=== PATIENT | female | born 1985 | race African-American/Black ===

== ENCOUNTER 2017-01-27 20:54 | Outpatient (CLI) | payer OTHER | END 2017-01-27 23:25 | disposition home or self-care (01) | DX: O47.1 False labor at or after 37 completed weeks of gestation (principal); Z3A.39 39 weeks gestation of pregnancy ==

== ENCOUNTER 2017-01-28 16:59 | Inpatient (IN) | payer OTHER ==
[2017-01-28] MEDS ORDERED: SODIUM CHLORIDE FLUSH 0.9% 10 ML SYRINGE IVP PRN ×2 (18:05→18:15)
[2017-01-28] MEDS ORDERED: PENICILLIN G POTASSIUM 5,000,000 UNIT in SODIUM CHLORIDE 0.9% MINIBAG 100 ML IV SCH ×2 (18:45→20:00)
[2017-01-28] MEDS ORDERED: LACTATED RINGERS 1,000 ML IV SCH (19:00)
[2017-01-28] MEDS: LACTATED RINGERS 1,000 ML IV SCH (20:50)
[2017-01-28] MEDS ORDERED: SODIUM CHLORIDE FLUSH 0.9% 10 ML SYRINGE IVP SCH ×2 (22:00)
[2017-01-29] MEDS: PENICILLIN G POTASSIUM 2,500,000 UNIT in SODIUM CHLORIDE 0.9% 100ML 100 ML IV SCH ×4 (00:02→13:54)
[2017-01-29] MEDS ORDERED: OXYTOCIN/LACTATED RINGERS 250 ML IV SCH (02:00)
[2017-01-29] MEDS ORDERED: fent/BUPIV 2 MCG/0.125% 250 ML EP PRN (02:51)
[2017-01-29] MEDS: LACTATED RINGERS 1,000 ML IV SCH ×2 (03:18→07:30)
[2017-01-29] MEDS ORDERED: LIDOCAINE 1% 50 ML MDV ONE (08:35)
[2017-01-29] MEDS ORDERED: MINERAL OIL LIGHT 10 ML MC ONE (09:08)
[2017-01-29] MEDS ORDERED: HYDROCORTISONE/PRAMOXINE 10 GM PR PRN (11:21)
[2017-01-29] MEDS ORDERED: OXYTOCIN/LACTATED RINGERS 250 ML IV ONE (11:21)
[2017-01-29] MEDS ORDERED: WITCH HAZEL/GLYCERIN 1 EACH MED..PAD TOP PRN (11:21)
[2017-01-29] MEDS ORDERED: LACTATED RINGERS 1,000 ML IV SCH (12:00)
[2017-01-29] MEDS: HYDROcod/ACETAM 5/325 MG TABLET PO PRN (12:50)
[2017-01-29] MEDS: IBUPROFEN 600 MG TABLET PO SCH ×3 (12:50→23:51)
[2017-01-29] MEDS: valACYclovir 500 MG TABLET PO SCH (16:47)
[2017-01-29] MEDS: PRENATAL VITAMIN TABLET PO SCH (16:52)
[2017-01-30] MEDS: IBUPROFEN 600 MG TABLET PO SCH ×3 (06:00→19:58)
[2017-01-30] MEDS: PRENATAL VITAMIN TABLET PO SCH (09:26)
[2017-01-30] MEDS: HYDROcod/ACETAM 5/325 MG TABLET PO PRN ×2 (09:26→13:37)
[2017-01-30] MEDS: valACYclovir 500 MG TABLET PO SCH (09:26)
[2017-01-31] MEDS: IBUPROFEN 600 MG TABLET PO SCH ×2 (01:59→10:38)
[2017-01-31] MEDS: valACYclovir 500 MG TABLET PO SCH (10:37)
[2017-01-31] MEDS: PRENATAL VITAMIN TABLET PO SCH (10:38)
== END 2017-01-31 10:44 | disposition home or self-care (01) | DRG 774 ==
PROC: 0KQM0ZZ Repair Perineum Muscle, Open Approach (ICD-10-PCS; principal; 2017-01-29)
PROC: 10D07Z6 Extraction of Products of Conception, Vacuum, Via Natural or Artificial Opening (ICD-10-PCS; principal; 2017-01-29)
DX: O99.824 Streptococcus B carrier state complicating childbirth (principal); O98.52 Other viral diseases complicating childbirth; B00.9 Herpesviral infection, unspecified; O77.0 Labor and delivery complicated by meconium in amniotic fluid; O76 Abnormality in fetal heart rate and rhythm complicating labor and delivery; O75.81 Maternal exhaustion complicating labor and delivery; O70.1 Second degree perineal laceration during delivery; O64.0XX0 Obstructed labor due to incomplete rotation of fetal head, not applicable or unspecified; O69.2XX0 Labor and delivery complicated by other cord entanglement, with compression, not applicable or unspecified; O43.893 Other placental disorders, third trimester; Z3A.40 40 weeks gestation of pregnancy; Z37.0 Single live birth; Z79.899 Other long term (current) drug therapy

== ENCOUNTER 2017-03-03 00:31 | Outpatient (CLI) | payer OTHER | END 2017-03-03 00:32 | disposition EMS.NT | LOC: EMS 00:31 | PROVIDERS: ATTEND Surgery | DX: R07.9 Chest pain, unspecified (principal); R06.02 Shortness of breath ==

== ENCOUNTER 2017-03-03 01:24 | Emergency (ER) | payer OTHER ==
--- NOTE | 2017-03-03 02:28 | XRAY Preliminary Report ---
Exam: XR Chest 1 View IMPRESSION: Normal single view chest. [facility] SITE ID: [id number]
--- NOTE | 2017-03-03 02:31 | XRAY Report ---
EXAM: CHEST RADIOGRAPHY EXAM DATE: 03/03/2017 02:09 AM. CLINICAL HISTORY: Chest pain, sob. COMPARISON: None. TECHNIQUE: 1 view. FINDINGS: Lungs/Pleura: No focal opacities evident. No pleural effusion. No pneumothorax. Mediastinum: Within exam limitations, cardiomediastinal contour is normal. Other: None. IMPRESSION: Normal single view chest. [facility] Referring Provider Line: [phone] SITE ID: [id number]
--- NOTE | 2017-03-03 03:38 | ED Physician Documentation ---
PD HPI CHEST PAIN - Stated complaint Stated Complaint: SOA/CP - Chief complaint Chief Complaint: Resp - History obtained from History obtained from: Patient, Family - History of Present Illness Timing - onset: Today Timing - onset during: Rest Timing - details: Abrupt onset, Now resolved Quality: Pressure Location: Left chest, Right chest Worsened by: No: Exertion, Inspiration, Palpation, Position Associated symptoms: Shortness of air. No: Diaphoresis, Nausea, Vomiting, Feeling faint / dizzy, General Weakness Similar symptoms before: Has not had sx before Recently seen: Not recently seen - Additional information Additional information: Patient is a 31 year old female presenting to the emergency department for chest pressure. patient states that she was pumping breast milk this evening when she developed chest pressure. Patient states that she has never had these symptoms in the past. patient denies any exertional component but does state that she had a cousin that had heart problems at 30 y/o Review of Systems Constitutional: denies: Fever, Chills Eyes: denies: Loss of vision, Photophobia Ears: denies: Ear pain Nose: denies: Rhinorrhea / runny nose, Congestion Throat: denies: Sore throat Cardiac: reports: Chest pain / pressure. denies: Palpitations, Pedal edema, Calf pain Respiratory: reports: Dyspnea. denies: Cough, Wheezing GI: denies: Abdominal Pain, Nausea, Vomiting : denies: Dysuria, Frequency, Hesitancy Skin: denies: Rash, Lesions Musculoskeletal: denies: Neck pain, Back pain, Extremity pain Neurologic: denies: Syncope, Confused, Altered mental status Psychiatric: denies: Depressed, Anxiety Immunocompromised: denies: Immunocompromised PD PAST MEDICAL HISTORY - Past Medical History Past Medical History: No Respiratory: None Endocrine/Autoimmune: None - Past Surgical History Past Surgical History: Yes - Present Medications Home Medications: Ambulatory Orders Medication Instructions Recorded Confirmed Estradiol [Estrace] 2 mg PO TID 05/29/16 05/29/16 Pnv95/Ferrous Fumarate/FA 1 tab PO DAILY 05/29/16 05/29/16 [ Tablet] Progesterone,Micronized 1 unit .ROUTE TID 05/29/16 05/29/16 [Endometrin] - Allergies Allergies/Adverse Reactions: Allergies Allergy/AdvReac Type Severity Reaction Status Date / Time No Known Drug Allergies Allergy Verified 05/29/16 16:00 - Social History Does the pt smoke?: No Smoking Status: Never smoker Does the pt drink ETOH?: No Does the pt have substance abuse?: No - Immunizations Immunizations are current?: Yes - POLST Patient has POLST: No PD ED PE NORMAL - Vitals Vital signs reviewed: Yes - General General: Alert and oriented X 3, No acute distress, Well developed/nourished - HEENT HEENT: Atraumatic, PERRL, Pharynx benign - Neck Neck: Supple, no meningeal sign, No JVD - Cardiac Cardiac: RRR, No murmur - Respiratory Respiratory: No respiratory distress, Clear bilaterally - Abdomen Abdomen: Soft, Non tender, Non distended - Derm Derm: Normal color, Warm and dry - Extremities Extremities: No deformity, No tenderness to palpate, No calf tenderness / cord - Neuro Neuro: No motor deficit, No sensory deficit, Normal speech - Psych Psych: Normal mood, Normal affect Results - Vitals Vitals: Vital Signs - 24 hr 03/03/17 03/03/17 03/03/17 01:25 01:46 03:00 Temperature 36.1 C L Heart Rate 82 81 76 Respiratory 16 16 14 Rate Blood Pressure 137/79 H 137/82 H 110/96 H O2 Saturation 98 97 96 03/03/17 03:40 Temperature Heart Rate 87 Respiratory 16 Rate Blood Pressure 108/71 O2 Saturation 97 Oxygen O2 Source Room air - EKG (time done) 0131 Rate: Rate (enter#) (77) Rhythm: NSR [place]: Normal Intervals: Normal [place] QRS: Normal Ischemia: T wave inversion (III) - Labs Labs: Laboratory Tests 03/03/17 03/03/17 01:33 03:45 Troponin I < 0.04 < 0.04 - Rads (name of study) chest x-ray Radiology: Final report received (no acute abnormality) PD MEDICAL DECISION MAKING - ED course Complexity details: reviewed results, re-evaluated patient, considered differential, d/w patient, d/w family ED course: Patient was seen and examined at bedside. patient was mildly anxious but was well appearing. vital signs were within normal limits. ekg was performed and showed only one t wave inversion. chest x-ray was within normal limits. troponin was negative. Due to the patient's family history a second troponin was ordered. Patient's heart score was 2 secondary to the t wave inversion and the family history. Patient's perc score was zero. Patient required no further work up at this time and was stable for discharge with outpatient follow up. Departure - Departure Disposition: 01 Home, Self Care Clinical Impression: Atypical chest pain Condition: Good Instructions: ED Chest Pain Atypical Unkn Cause Follow-Up: primary,care provider [Other] - Within 1 week (re-evaluate for chest pain) Comments: Your diagnostics today were within normal limits. Your pain is less likely cardiac in nature but this is only a snapshot in time. You should follow up with your pmd within the next week. you should return to the emergency department at any time for new, worsening or uncontrollable symptoms.
[2017-03-03 04:30] VITALS: BP 110/80
== END 2017-03-03 04:15 | disposition home or self-care (01) ==
LOC: EDUNIT# → ED 01:24
DX: R07.89 Other chest pain (principal)
CPT/HCPCS: 36415; 71010; 84484; 93005; 93010; 99284; 99285

== ENCOUNTER 2017-03-06 18:14 | Emergency (ER) | payer OTHER ==
[2017-03-06] MEDS ORDERED: MAG HYDROX/AL HYDROX/SIMETH 30 ML UDC PO STA (18:35)
[2017-03-06] MEDS ORDERED: PHENobarb/HYOSCY/ATROPINE/SCOP 5 ML SYRINGE PO STA (18:35)
[2017-03-06] MEDS ORDERED: LIDOCAINE VISCOUS 2% 15 ML UDC MM STA (18:36)
--- NOTE | 2017-03-06 18:37 | ED Physician Documentation ---
PD HPI CHEST PAIN - Stated complaint Stated Complaint: SOA,CHEST TIGHTNESS - Chief complaint Chief Complaint: Abd Pain - History obtained from History obtained from: Patient, Family (spouse) - History of Present Illness Timing - onset: How many hours ago (1) Timing - onset during: Rest Timing - details: Still present (but much better than it was.) Quality: Dull Location: Substernal, Epigastric Worsened by: Inspiration, Movement (supine position) Associated symptoms: Shortness of air. No: Diaphoresis, Nausea, Vomiting Similar symptoms before: Has not had sx before - Treatment prior to arrival Treatment prior to arrival: The patient is a 31-year-old female who presents with lower substernal chest pain that started about one hour prior to arrival while she was lying on a recliner with her baby lying on her chest. She reports associated shortness of breath. She denies nausea, vomiting, or diaphoresis. The discomfort has improved since she has been upright from the reclining position. She was seen here 3 days ago with similar symptoms, and was diagnosed with atypical chest pain. She denies any history of similar symptoms prior to that time. Review of Systems Constitutional: denies: Fever Nose: denies: Congestion Throat: denies: Sore throat Cardiac: reports: Chest pain / pressure. denies: Palpitations Respiratory: denies: Cough GI: reports: Abdominal Pain (epigastric). denies: Nausea, Vomiting : denies: Dysuria Skin: denies: Rash Musculoskeletal: denies: Back pain Neurologic: denies: Headache PD PAST MEDICAL HISTORY - Past Medical History Respiratory: None Endocrine/Autoimmune: None - Past Surgical History Past Surgical History: Yes - Present Medications Home Medications: Ambulatory Orders Medication Instructions Recorded Confirmed Pnv95/Ferrous Fumarate/FA 1 tab PO DAILY 05/29/16 03/06/17 [ Tablet] raNITIdine [Zantac] 150 mg PO BID #30 tablet 03/06/17 - Allergies Allergies/Adverse Reactions: Allergies Allergy/AdvReac Type Severity Reaction Status Date / Time No Known Drug Allergies Allergy Verified 05/29/16 16:00 - Social History Does the pt smoke?: No Smoking Status: Never smoker Does the pt drink ETOH?: No Does the pt have substance abuse?: No - Immunizations Immunizations are current?: Yes - POLST Patient has POLST: No PD ED PE NORMAL - Vitals Vital signs reviewed: Yes (mild systolic hypertension initially.) - General General: Alert and oriented X 3, Well developed/nourished - HEENT HEENT: Atraumatic, EOMI, Pharynx benign - Neck Neck: No adenopathy, No JVD - Cardiac Cardiac: RRR, No murmur - Respiratory Respiratory: No respiratory distress, Clear bilaterally, Other (no chest wall tenderness to palpation.) - Abdomen Abdomen: Soft, Other (Mild tenderness to palpation in the epigastric region, with mild tenderness also in the right upper quadrant. No rebound tenderness or guarding.) - Back Back: No CVA TTP - Derm Derm: No rash - Extremities Extremities: No edema, No calf tenderness / cord - Neuro Neuro: Alert and oriented X 3, No motor deficit, No sensory deficit, Normal speech Results - Vitals Vitals: Oxygen O2 Source Room air - EKG (time done) 18:32 Rate: Rate (enter#) (84) Rhythm: NSR [place]: Normal Intervals: Normal [place] QRS: Normal Ischemia: Normal ST segments Computer interpretation: Agree with computer - Rads (name of study) U/S RUQ Radiology: Prelim report reviewed, EMP read contemporaneously, See rad report (1 ) No acute findings. No gallstones. No bile duct dilatation. 2) Mild fatty liver could be present. 3) 6 mm hypoechoic mass in the lateral segment left hepatic lobe, could represent a small hemangioma. A 6 month followup abdomen ultrasound could be obtained to confirm stability.) PD MEDICAL DECISION MAKING - ED course Complexity details: reviewed old records, reviewed results, re-evaluated patient , considered differential, d/w patient, d/w family ED course: The patient's presentation is most consistent with gastroesophageal reflux. Cardiac etiology is unlikely, and her electrocardiogram is normal. An ultrasound of the right upper quadrant was performed to evaluate for the possibility of biliary colic. The ultrasound reveals no evidence of gallstones. The radiologist does describe a 6 mm hyperechoic mass that appears to be a hemangioma located in the left lobe of the liver. She recommends repeat ultrasound in 6 months to reevaluate for any changes. Treatment in the emergency department included administration of GI cocktail, which completely relieved the patient's symptoms. She is being discharged with prescription for ranitidine. I discussed with her and her the diagnosis , outpatient treatment and follow-up, as well as potentially worrisome signs or symptoms that should prompt reevaluation in the emergency department. Departure - Departure Disposition: 01 Home, Self Care Clinical Impression: Acute epigastric pain Gastroesophageal reflux disease Qualifiers: Esophagitis presence: without esophagitis Qualified Code(s): K21.9 - Gastro- esophageal reflux disease without esophagitis Condition: Stable Instructions: ED GERD Follow-Up: DAMIR Schmidt [Provider Group] Prescriptions: raNITIdine [Zantac] 150 mg PO BID #30 tablet Comments: Minimize coffee, marianne, greasy or spicy foods. Take ranitidine twice daily as prescribed. You can use liquid antiacids, such as Maalox or Mylanta, if you develop recurrent symptoms. Follow up with your primary physician within 2 weeks. Call to schedule an appointment. Return to the emergency department if you develop increasing pain, persistent vomiting, or otherwise worsening symptoms. Discharge Date/Time: 03/06/17 22:02
[2017-03-06] MEDS ORDERED: LIDOCAINE VISCOUS 2% 15 ML UDC MM ONE (18:39)
[2017-03-06] MEDS ORDERED: PHENobarb/HYOSCY/ATROPINE/SCOP 5 ML SYRINGE PO ONE (18:40)
[2017-03-06] MEDS ORDERED: MAG HYDROX/AL HYDROX/SIMETH 30 ML UDC ONE (18:40)
[2017-03-06 21:23] VITALS: BP 124/75
--- NOTE | 2017-03-06 21:36 | Ultrasound Preliminary Report ---
Exam: US Abdomen Limited IMPRESSION: 1. No acute findings. No gallstones. No bile duct dilatation. 2. Mild fatty liver could be present. 3. 6 mm hyperechoic mass in the lateral segment left hepatic lobe, could represent a small hemangioma . A six-month follow-up abdomen ultrasound could be obtained to confirm stability. [facility] SITE ID: [id number]
--- NOTE | 2017-03-06 21:39 | Ultrasound Report ---
EXAM: ABDOMEN ULTRASOUND LIMITED, RUQ EXAM DATE: 03/06/2017 08:44 PM. CLINICAL HISTORY: Right upper quadrant abdominal pain. COMPARISON: None. TECHNIQUE: Real-time scanning was performed with static images obtained. FINDINGS: Liver: Small hyperechoic mass in the lateral segment left hepatic lobe measuring 5 x 6 x 5 mm. This c ould represent a small hemangioma. Otherwise, the liver echotexture appears mildly hyperechoic, and could represent mild fatty liver. L iver length 15.2 cm. Main portal vein flow: Hepatopetal. Gallbladder: Gallbladder appears partially contracted which mildly limits the exam. Gallbladder wall measures 2.1 mm. No gallbladder wall thickening or pericholecystic fluid. No gallstones are seen. Neg ative sonographic Nugent sign. Biliary System: Common duct measures 4 mm. No intrahepatic or extrahepatic ductal dilatation. Other: Right kidney measures 10.9 cm. No right hydronephrosis. Visualized portions of the pancreas appear unremarkable. IMPRESSION: 1. No acute findings. No gallstones. No bile duct dilatation. 2. Mild fatty liver could be present. 3. 6 mm hyperechoic mass in the lateral segment left hepatic lobe, could represent a small hemangioma . A six-month follow-up abdomen ultrasound could be obtained to confirm stability. [facility] Referring Provider Line: [phone] SITE ID: [id number]
== END 2017-03-06 22:02 | disposition home or self-care (01) ==
LOC: ED 18:14
DX: R10.13 Epigastric pain (principal); K21.9 Gastro-esophageal reflux disease without esophagitis; R16.0 Hepatomegaly, not elsewhere classified
CPT/HCPCS: 76705; 93005; 93010; 99283; 99284; A9270